=== PATIENT | male | born 2000 | race Caucasian/White ===

== ENCOUNTER 2020-09-10 11:48 | Emergency (ER) | payer OTHER, SELFPAY ==
[2020-09-10 12:19] VITALS: BP 129/69; PULSE 94; RESP 16; TEMP 36.8; O2SAT 100; BMI 24.3
--- NOTE | 2020-09-10 12:22 | XR_ITS ---
EXAMINATION: XR ANKLE, LEFT CLINICAL INFORMATION: Trauma, pain COMPARISON: None TECHNIQUE: AP, lateral, and mortise views of the left ankle. FINDINGS: The malleoli are intact and the ankle mortise is symmetric. There is no visible fracture or dislocation. The talar dome shows no osteochondral lesion. The retrocalcaneal recess is preserved. Visualized subtalar joint unremarkable. No calcaneal spurring. XR/XR ankle LT min 3V IMPRESSION: Normal left ankle.
--- NOTE | 2020-09-10 12:44 | ED.LOWEXIN ---
HPI - Extremity Injury (Lower) General Chief Complaint: Extremity Injury, Lower Stated Complaint: injured ankle Time Seen by Provider: 09/10/20 12:18 Source: patient Mode of arrival: ambulatory Limitations: no limitations History of Present Illness HPI Narrative: 20 y/o male presenting with left ankle pain after he twisted it while playing football yesterday. He denies hearing any pops or snaps. He is able to walk on it but it is painful. He denies swelling or bruising. Denies knee or hip pain. MD complaint: ankle injury Injury: Left: ankle Type of Injury: eversion Place: street/outdoors Severity: moderate Relieving factors: nothing Exacerbating factors: weight bearing, movement and palpation Context: fall Associated symptoms: able to partially bear weight Other symptoms: none Related Data Previous Rx's Medication Instructions Recorded ibuprofen 600 mg PO Q8H PRN #20 tab 09/10/20 Allergies Allergy/AdvReac Type Severity Reaction Status Date / Time azithromycin [AZITHROMYCIN] Allergy Mild HIVES Verified 09/10/20 12:21 lidocaine [From [facility]] Allergy Unknown UNKNOWN Verified 09/10/20 12:21 prilocaine [From [facility]] Allergy Unknown UNKNOWN Verified 09/10/20 12:21 Review of Systems Review of Systems: Constitutional: No Fever, No Chills Cardiovascular: No Chest Pain, No SOB Respiratory: No Cough, No Sputum Musculoskeletal: + joint pain, No Myalgias Skin: No Skin Lesions, No rash Neuro: No Weakness, No Numbness Heme/Lymph: No Bruising PMFSH Past Medical History Attestation statement: The following information was validated with the patient. Physical Exam Vital Signs: Vital Signs: Last Vital Signs Temp 98.3 F 09/10/20 12:19 Pulse 94 09/10/20 12:19 Resp 16 09/10/20 12:19 BP 129/69 09/10/20 12:19 Pulse Ox 100 09/10/20 12:19 Body Mass Index 24.3 Appearance: Alert. Oriented X3. No acute distress. HEENT: normal inspection Respiratory: No respiratory distress. Skin: Skin warm and dry. Normal skin color. Normal skin turgor. No rashes. Extremities: left ankle is normal in appearance, no ecchymosis, swelling or deformity. tender to palpation inferior to medial malleolus, normal ROM, NV intact. normal right ankle exam Course Course Course Narrative: 20 y/o male presenting with left ankle pain after eversion injury. XR negative for fracture. will treat for mild sprain with JENNIFER wrap and NSAID. stable for d/c. MDM - Extremity Injury (Lower) Differential Diagnosis Differential diagnosis: Likely ankle sprain and strain and ankle fracture Critical Care Time Critical Care Time Critical Care Time: No Discharge Plan Discharge Clinical Impression: Ankle sprain and strain Patient Disposition: Home, Self-Care Instructions: Ankle Sprain (ED) Additional Instructions: Your X-ray today was normal. Use ice several times per day and elevate your ankle when able. You may bear weight as tolerated. Take Ibuprofen as needed for pain. Use JENNIFER wrap for comfort, do not sleep with JENNIFER wrap in place. Follow up with your doctor next week. Prescriptions: New ibuprofen 600 mg tablet 600 mg PO Q8H PRN (Reason: pain) Qty: 20 RF: 0 Stand Alone Forms: Work/School Release
== END 2020-09-10 13:10 | disposition home or self-care (01) ==
LOC: HO.ED 12:52
PROVIDERS: Physician Assistant; Emergency Provider Emergency Medicine Emergency Medical Services
DX: S93.402A Sprain of unspecified ligament of left ankle, initial encounter (principal); M25.572 Pain in left ankle and joints of left foot; Y93.61 Activity, american tackle football; Y92.321 Football field as the place of occurrence of the external cause; Y99.9 Unspecified external cause status; Z20.828 Contact with and (suspected) exposure to other viral communicable diseases
CPT/HCPCS: 73610; 99282; 99283; U0003